=== PATIENT | male | born 1955 | race Caucasian/White ===

== ENCOUNTER → 2020-10-12 | Outpatient (CLI) | payer MEDICARE, OTHER ==
[2015-04-16 10:29] VITALS: BP 121/77
[~2020-10-12] MED LIST: ASPI-630 PO; LOSA25TA54 PO; OXYC1TAB15 PO; PRAV40TA2 PO
[2020-10-12 10:36] LABS: ALBUMIN 4.1 g/dL (3.4-5.0); CREATININE 0.9 mg/dL (0.7-1.3); GFR 84.4; POTASSIUM 4.2 mmol/L (3.5-5.1)
[2020-10-12 10:38] LABS: BASO # 0.1 x10^3/uL (0.0-0.2); BASO % 1 % (0-3); EOS # 0.3 x10^3/uL (0.0-0.7); EOS % 3 % (0-3); HEMOGLOBIN 15.1 g/dL (13.0-17.5); LYMPH # 2.7 x10^3/uL (1.0-4.8); LYMPH % 28 % (24-48); MEAN CORPUSCULAR HEMOGLOBIN 31 pg (25-35); MEAN CORPUSCULAR HGB CONC 34 g/dL (31-37); MEAN CORPUSCULAR VOLUME 91 fL (79-100); MONO # 0.7 x10^3/uL (0.0-1.1); MONO % 8 % (0-9); NEUT # 5.8 x10^3/uL (1.8-7.7); NEUT % 61 % (31-73); PLATELET COUNT 206 x10^3/uL (140-400); RED BLOOD COUNT 4.94 x10^6/uL (4.30-5.70); WHITE BLOOD COUNT 9.6 x10^3/uL (4.0-11.0)
[2020-10-12 10:51] LABS: PROTHROMBIN TIME PATIENT 12.6 SEC (11.7-14.0)
--- NOTE | 2020-10-12 12:47 | EKG ---
[facility] [address] [place] [address] Test Date: 2020-10-12 Test Time: 12:13:50 Pat Name: NADER GARCÍA Department: Room: Gender: M [employer]: : 1955 Requested By: ACE GAMEZ Order Number: [id number] Reading MD: Robert Quinn MD Measurements Intervals [place] Rate: 56 P: 49 ID: [id number] QRS: 38 QRSD: 90 T: 23 QT: 402 QTc: 390 Interpretive Statements SINUS RHYTHM Electronically Signed On 10-12-2020 15:48:58 CDT by Robert Quinn MD
--- NOTE | 2020-10-12 13:31 | RAD ---
EXAM: Chest, 2 views. HISTORY: Preoperative evaluation. COMPARISON: None. FINDINGS: 2 views of the chest are obtained. There is no infiltrate, pleural effusion or pneumothorax . The heart is normal in size. IMPRESSION: No acute pulmonary finding. Electronically signed by: Yokasta Ohara MD (10/12/2020 1:28 PM) [id number]
[2020-10-13 00:09] LABS: HEMOGLOBIN A1C 7.7 % (4.8-5.6)
== END ==
LOC: SURGPAT 12:27
PROVIDERS: ATTEND Orthopaedic Surgery
DX: Z01.810 Encounter for preprocedural cardiovascular examination (principal); M17.11 Unilateral primary osteoarthritis, right knee; Z96.651 Presence of right artificial knee joint; Z86.79 Personal history of other diseases of the circulatory system
CPT/HCPCS: 36415; 71046; 80048; 82040; 82306; 83036; 85025; 85610; 85651; 85730; 87641; 93005